=== PATIENT | female | born 1980 | race Caucasian/White ===

== ENCOUNTER → 2020-11-07 | Outpatient (CLI) | payer OTHER ==
[~2020-11-07] MED LIST: ALPR0.5T7 PO; CHOL200024 PO; CYAN500T53 PO; ESCI20TA10 PO; LEVO1CAP PO; METH500C3 PO
== END | disposition home or self-care (01) ==
LOC: CFH 13:13
PROVIDERS: ATTEND Family Medicine
DX: Z12.31 Encounter for screening mammogram for malignant neoplasm of breast (principal)
CPT/HCPCS: 77063; 77067